=== PATIENT | female | born 1980 | race African-American/Black ===

== ENCOUNTER 2016-06-18 23:27 | Emergency (ER) | payer OTHER ==
[~2016-06-18] VITALS: Ht 172.7 cm; Wt 59.0 kg
[2016-06-18 23:29] VITALS: BP 121/79
--- NOTE | 2016-06-19 00:15 | NUR ---
PT TAKEN TO OVERFLOW
--- NOTE | 2016-06-19 00:17 | NUR ---
Dr. Prakash evaluating patient
[2016-06-19] MEDS ORDERED: NACL 0.9% 1,000 ML IV ONE (00:20)
[2016-06-19] MEDS ORDERED: cefTRIAXone 1,000 MG in LIDOCAINE 1% ED 2.1 ML IM ONE (00:20)
[2016-06-19] MEDS ORDERED: KETOROLAC 30 MG/ML VIAL IVP ONE (00:20)
--- NOTE | 2016-06-19 01:02 | NUR ---
PT MOVED TO BED 3
[2016-06-19] MEDS ORDERED: cefTRIAXone 1,000 MG VIAL ONE (01:14)
--- NOTE | 2016-06-19 01:15 | NUR ---
36 Y/O F W/C/O SORE THROAT AND FEVER ON AND OFF X 1 WK. NO S/S OF DISTRESS NOTED AT THE MOMENT. ER AWARED.
[2016-06-19 03:05] VITALS: BP 111/65
--- NOTE | 2016-06-19 03:05 | NUR ---
Patient discharged with v/s stable PER DR FLORES. Written and verbal after care instructions given and explained PER DR FLORES. Patient verbalized understanding. Ambulatory with steady gait. All questions addressed prior to discharge. Advised to follow up with PMD. D/C NOTE ONLY.
== END 2016-06-19 03:05 | disposition home or self-care (01) ==
LOC: MED 23:27
DX: J02.9 Acute pharyngitis, unspecified (principal)
CPT/HCPCS: 96365; 96375; 99284; J0696; J1885; J7030; J7060